=== PATIENT | female | born 1955 | race Caucasian/White ===

== ENCOUNTER 2017-01-21 05:12 | Inpatient (IN) | payer BC ==
[2016-12-23 08:09] VITALS: BMI 41.0
--- NOTE | 2016-12-23 08:41 | PAT Medication Instructions ---
Service Date December 23, 2016. Current Home Medication List Aspirin (Aspirin Tab-Chewable *), QPM Atorvastatin (Lipitor), 20 MG PO QPM Cholecalciferol (Vitamin D3), 1 TAB PO QPM Fish Oil (Robeline-3), 1 CAP PO QPM Furosemide (Lasix), 20 MG PO QAM Melatonin (Melatonin), 1 TAB PO QPM Medication Instructions For Your Scheduled Surgery - Hold the following medications 2 weeks prior to surgery: Fish Oil (Robeline-3), 1 CAP PO QPM - Hold the following medications the morning of surgery: Furosemide (Lasix), 20 MG PO QAM - Take the following medications as scheduled the night before surgery: Melatonin (Melatonin), 1 TAB PO QPM Aspirin 81mg (Aspirin Tab-Chewable *), QPM (okay to continue per surgeon) Atorvastatin (Lipitor), 20 MG PO QPM Cholecalciferol (Vitamin D3), 1 TAB PO QPM If you have any questions please call us at [phone] (Brisa Gonzalez PA-C) or [phone] or [phone]
--- NOTE | 2016-12-23 09:27 | DIAGNOSTIC IMAGING REPORT ---
CHEST PREADMISSION(PA/LAT) HISTORY: Preop. COMPARISON: Chest 11/07/2005. FINDINGS: Mild diffuse interstitial thickening which is slightly progressed. No new focal lung consolidations. No evidence for pulmonary edema. No pleural effusions. No pneumothorax. The heart is normal in size. IMPRESSION: Mild diffuse interstitial thickening which is likely chronic. This has slightly progressed. Electronically signed by: Mati Barajas M.D. 12/23/2016 9:26 AM Dictated Date/Time: 12/23/2016 9:25 AM
--- NOTE | 2017-01-16 21:17 | HISTORY & PHYSICAL EXAMINATION ---
DATE OF ADMISSION: 01/21/2017 CHIEF COMPLAINT: Bilateral knee pain, right side greater than left. HISTORY OF PRESENT ILLNESS: The patient is a 61-year-old white female who is referred to me by my partner Dr. Robertson for surgical treatment of her knees. She has got a long history of bilateral knee pain and discomfort, right side greater than left. She has been through extensive conservative treatment over the past 10 years. She had her left knee reconstructed years ago. She developed increased pain and discomfort in both knees. The right side is more painful than the left. She would like to have both knees fixed but would like to start with the right one. She describes global pain. It is increased with weightbearing. Her walking tolerance is limited to a couple of minutes. PAST MEDICAL HISTORY: 1. Elevated cholesterol. 2. History of TIA without residual. 3. Obesity with a BMI of 41. 4. Half pack a day of cigarette smoking for 30 years. PAST SURGICAL HISTORY: Previous surgeries include: 1. Left ACL repair. 2. Right knee arthroscopy. ALLERGIES: None. No known drug allergies. CURRENT MEDICINES: 1. Lipitor once a day. 2. Baby aspirin once a day. 3. Fish oil. 4. Vitamin D. SOCIAL HISTORY: This is a 61-year-old female. She smokes half pack of cigarettes a day. She is not very active due to her knee pain. FAMILY HISTORY: Significant for heart disease, diabetes, lung cancer, colon cancer. REVIEW OF SYSTEMS: Negative for diabetes. Denies any chest pain or shortness of breath. No history of DVT or PE. No bleeding problems. PHYSICAL EXAMINATION: GENERAL: This is a pleasant, middle-aged female. She looks to be in reasonably good health. HEENT: Benign. NECK: Supple. No lymphadenopathy. LUNGS: Clear to auscultation. HEART: Regular rate and rhythm. ABDOMEN: Soft, nontender, nondistended. EXTREMITIES: Grossly neurovascularly intact except as follows: Examination of the right knee reveals patient walks with a slight bit of varus alignment to her knee. Small varus thrust. Tender over the medial joint line. Range of motion is 5-125. No instability. Examination of the left knee reveals slight varus alignment. Small knee effusion. Range of motion 0-125. No instability. X-RAYS: X-rays of both knees were reviewed. It shows advanced bilateral knee DJD. The right side is bit worse than the left. She has got complete loss of the medial joint space. She has got subchondral sclerosis in the medial compartment of both knees. There is evidence of ACL reconstruction on the left side. ASSESSMENT: A 61-year-old white female with a long history of bilateral knee pain and discomfort, unresponsive to conservative treatment. She has had her right knee scoped in the past and left ACL fixed. She continues to have persistent pain. Right side is worse than left. She has failed conservative treatment and would like to have her right knee replaced. She would like to have her left one done shortly thereafter. PLAN: We will take her to the operating room and do a right total knee replacement. The risks and benefits of this procedure were explained to the patient including but not limited to DVT, PE, , infection, neurological injury, vascular injury, bleeding problem, pain, limited range of motion, stiffness, failure to relieve symptoms, incomplete relief of symptoms, need for further surgery in the future, fracture, leg length inequality, nerve palsy, persistent pain, etc. The patient understands and desires to proceed. Informed consent was obtained. We will have to likely use a nicotine patch due to her smoking history in the hospital. As far as discharge plans, she is planning to be discharged to home using [facility] home health program.
[~2017-01-21] VITALS: Ht 157.5 cm; Wt 102.5 kg
[2017-01-21] VITALS (12 sets, daily range): BP systolic 128–157; BP diastolic 77–87; PULSE 68–99; TEMP 36.5–36.9; O2SAT 84–100; Ht 157.5 cm; Wt 102.5 kg
[~2017-01-21 05:12] MED LIST: ASPCH81; ATOR-22 PO; CHOL1000 PO; FURO-85 PO; MELA3TAB PO; OMEG10007 PO
[2017-01-21] MEDS ORDERED: METOCLOPRAMIDE HCL 10 MG TAB PO SCH (06:00)
[2017-01-21] MEDS ORDERED: BUPIVACAINE LIPOSOME 266 MG, BUPIVACAINE/EPINEPHRINE INJ 50 ML, SODIUM CHLORIDE 0.9% PF... INFIL SCH ×3 (06:00)
[2017-01-21] MEDS ORDERED: FAMOTIDINE 20 MG TAB PO SCH (06:00)
[2017-01-21] MEDS ORDERED: CEFAZOLIN 2000 MG/60 ML D5W 60 ML IV SCH (06:00)
[2017-01-21] MEDS ORDERED: GABAPENTIN 300 MG CAP PO SCH (06:00)
[2017-01-21] MEDS ORDERED: SCOPOLAMINE 1.5 MG TDSY TD SCH (06:00)
[2017-01-21] MEDS ORDERED: LACTATED RINGER'S 1000ML 500 ML IV ONE (06:00)
[2017-01-21] MEDS ORDERED: LACTATED RINGER'S 1000ML 1,000 ML IV SCH ×2 (06:00→16:00)
[2017-01-21] MEDS ORDERED: TRANEXAMIC ACID INJ 1,000 MG in SODIUM CHLORIDE 0.9% 100ML 100 ML IV SCH ×2 (06:00→12:00)
[2017-01-21] MEDS ORDERED: ACETAMINOPHEN 500 MG TAB PO SCH (06:00)
[2017-01-21] MEDS ORDERED: BACITRACIN 50000 UNIT VIAL ONE (06:27)
[2017-01-21] MEDS ORDERED: BUPIVACAINE LIPOSOME 1/3% 266 MG/20 ML VIAL INFIL ONE (06:27)
[2017-01-21] MEDS ORDERED: BUPIVACAINE/EPINEPHRINE 0.25% 1:200,000 30 ML VIAL ONE (06:27)
[2017-01-21] MEDS ORDERED: SODIUM CHLORIDE 0.9% PF 50 ML VIAL ONE (06:27)
[2017-01-21] MEDS ORDERED: BUPIVACAINE 0.5 % 5 MG/1 ML PF 10ML VIAL ONE (06:31)
[2017-01-21] MEDS ORDERED: BUPIVACAINE 0.25% 30 ML VIAL ONE (06:32)
[2017-01-21] MEDS ORDERED: ROCURONIUM BROMIDE 10 MG/ML 5 ML VIAL ONE (06:34)
[2017-01-21] MEDS ORDERED: DEXAMETHASONE SOD INJ 4 MG/ML VIAL ONE (06:34)
[2017-01-21] MEDS ORDERED: PROPOFOL IV EMULSION 10 MG/ML 20 ML VIAL IV ONE (06:34)
[2017-01-21] MEDS ORDERED: ONDANSETRON INJ 2 MG/ML 2 ML VIAL ONE (06:34)
[2017-01-21] MEDS ORDERED: GLYCOPYRROLATE INJ 0.2 MG/ML VIAL ONE ×2 (06:34→08:01)
[2017-01-21] MEDS ORDERED: LIDOCAINE HCL 2% 2 ML VIAL (20MG/ML) ONE (06:34)
[2017-01-21] MEDS ORDERED: NEOSTIGMINE METHYLSULFATE 5 MG/5 ML SYR ONE (06:34)
[2017-01-21] MEDS ORDERED: MIDAZOLAM HCL 1 MG/ML 2ML VIAL ONE ×2 (06:36→06:38)
[2017-01-21] MEDS ORDERED: FENTANYL CITRATE INJ 50 MCG/1 ML 2 ML VIAL ONE (06:36)
--- NOTE | 2017-01-21 06:45 | History & Physical Bridge Note ---
H&P Re-Evaluation Bridge Note: I have examined the patient, reviewed the History & Physical and in the interval since the performance of the History & Physical I have noted the following changes of clinical significance: No changes noted
[2017-01-21] MEDS ORDERED: VANCOMYCIN HCL 1000MG/20ML VIAL ONE (07:17)
[2017-01-21] MEDS ORDERED: FENTANYL CITRATE INJ 50 MCG/1 ML 2 ML VIAL IV PRN (07:30)
[2017-01-21] MEDS ORDERED: ONDANSETRON INJ 2 MG/ML 2 ML VIAL IV PRN ×2 (07:30→08:45)
[2017-01-21] MEDS ORDERED: ATROPINE SULFATE 0.1 MG/ML 5ML SYR IV PRN (07:30)
[2017-01-21] MEDS ORDERED: EpHEDrine SULFATE INJ 50 MG/ML AMP IV PRN (07:30)
--- NOTE | 2017-01-21 08:34 | [facility] Post Operative Brief Note ---
Immediate Operative Summary Operative Date Jan 21, 2017. Pre-Operative Diagnosis Right Knee Advanced Degenerative Joint Disease Post-Operative Diagnosis Right Knee Advanced Degenerative Joint Disease Procedure(s) Performed Right Total Knee Arthroplasty Surgeon Dr. Guido Biology Instructor Surgeon(s) SULTANA Cochran Estimated Blood Loss 50 ml Findings Right Knee DJD Fluids (cc crystalloids) 1200 cc Specimens A. Right Knee Bone and Tissue Drains None Anesthesia Spinal Complication(s) None Disposition Recovery Room / PACU
[2017-01-21] MEDS ORDERED: ALUMINUM/MAGNESIUM/SIMETH (MAALOX MAX) 30 ML UDC PO PRN (08:45)
[2017-01-21] MEDS ORDERED: METOCLOPRAMIDE HCL INJ 5 MG/ML 2 ML VIAL IV PRN (08:45)
[2017-01-21] MEDS ORDERED: SILVER SULFADIAZINE 1% CR 50 GM JAR EXT PRN (08:45)
[2017-01-21] MEDS ORDERED: MoRPHine SULFATE 2 MG/ML CARP IV PRN (08:45)
[2017-01-21] MEDS ORDERED: MAGNESIUM HYDROXIDE SUSP 30 ML UDC PO PRN (08:45)
[2017-01-21] MEDS ORDERED: ZOLPIDEM TARTRATE 5 MG TAB PO PRN (08:45)
[2017-01-21] MEDS ORDERED: DiphenhydrAMINE HCL 50 MG/ML VIAL IV PRN (08:45)
[2017-01-21] MEDS ORDERED: BISACODYL 10 MG SUPP PR PRN (08:45)
[2017-01-21] MEDS ORDERED: NURSING VERBAL MED ORDER ONE (08:50)
[2017-01-21] MEDS: PANTOprazole SOD 40 MG TAB PO SCH (09:00)
[2017-01-21] MEDS: FUROSEMIDE 20 MG TAB PO SCH (09:00)
[2017-01-21] MEDS: MULTIVITAMIN TAB PO SCH (09:00)
[2017-01-21] MEDS: ASPIRIN 325 MG ECTAB PO SCH ×2 (09:00→21:10)
[2017-01-21] MEDS: DOCUSATE SODIUM 100 MG CAP PO SCH ×2 (09:00→21:12)
--- NOTE | 2017-01-21 09:09 | OPERATIVE REPORT ---
DATE OF OPERATION: 01/21/2017 SURGEON: Dr. Jus Guido. APPLICATIONS DEVELOPMENT CONSULTANT: SULTANA Villagran PREOPERATIVE DIAGNOSIS: Right knee degenerative joint disease. POSTOPERATIVE DIAGNOSIS: Same. PROCEDURE PERFORMED: Right cemented posterior stabilized total knee arthroplasty. COMPLICATIONS: None. ESTIMATED BLOOD LOSS: 50 mL. FLUID REPLACEMENT: 1200 mL crystalloid fluid replacement. TOURNIQUET TIME: 54 minutes at 300 mmHg. ANESTHESIA: Spinal with adductor canal block. DRAINS: None. SPECIMENS: Right knee sent for pathology. OPERATIVE INDICATIONS: The patient is a 61-year-old female who has had a long history of bilateral knee problems. She had a history of an open meniscectomy of the right knee many years ago. She has had persistent pain and discomfort and swelling in her knee for several years. She has been treated by my partner Dr. Robertson. She failed conservative care. X-rays revealed advanced right knee DJD. The patient elected to proceed with operative treatment. 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 We elected to place some antibiotic in the cement as a result. OPERATIVE FINDINGS: Operative findings revealed advanced right knee DJD. She had grade 4 [id number] disease, most extensive in the medial compartment. The lateral compartment was pretty well preserved. She has some moderate degenerative changes in the patellofemoral compartment. OPERATIVE IMPLANTS: Operative implants consisted of: 1. A Biomet Vanguard size 62.5 right posterior stabilized femoral component. 2. Biomet size 63 tibial tray. 3. A 12-mm posterior stabilized polyethylene insert. 4. A 28 x 8 all poly patella. OPERATIVE PROCEDURE: The patient was taken to the operating room, identified and placed on the operating table in the supine position. All contact areas were appropriately padded. IV antibiotics were provided by the anesthesia team. A spinal anesthetic and adductor canal block had been provided in the holding area. Hayes catheter was placed in sterile fashion. Right thigh tourniquet was then placed and the right lower extremity was then prepped and draped in the usual sterile fashion. The right leg was elevated and exsanguinated with Esmarch and tourniquet was placed at 300 mmHg. An anterior approach to the right knee was then performed through a longitudinal incision centered over the patella. Sharp dissection was carried through the subcutaneous tissue down to the level of the extensor mechanism. A medial parapatellar arthrotomy incision was made. Some subperiosteal dissection was carried out medially. The fat pad was resected from beneath the patellar tendon. Lateral patellofemoral ligament was released. The patella was everted and knee was flexed. The osteophytes were taken off the distal femur. The ACL and PCL were then released from the distal femur. The tibia was subluxated anteriorly. The external tibial alignment jig was then placed in the anterior face of the tibia and adjusted 16 mm medially. Proximal tibial cut was made to remove about a millimeter or 2 of bone from the most deficient aspect of the medial tibial plateau. The tibia was sized to a size 63. Some osteophytes were taken off medial and posteromedially. Of note, the patient did seem to have some MCL laxity medially, likely due to her previous open exposure surgery. Attention was then drawn to the femur. The distal femur was entered with a sharp drill. The intramedullary canal was suctioned. A right 5-degree valgus cutting guide was placed. Distal femoral cutting block was pinned in place. Distal femoral cut was made to take an additional 3 mm of bone off the distal femur. The femur was then sized to a size 62.5. The AP cutting block was pinned parallel to the epicondylar axis, which was 2 degrees of external rotation. The anterior cut, anterior chamfer cut, posterior cut, and posterior chamfer cuts were made. Box cutting guide was placed and adjusted slightly lateral and the box cut was made. The knee was flexed. The remnants of the medial and lateral menisci were excised. The osteophytes were taken off the posterior aspect of the femur. A trial femoral component was placed. The tibial tray was pinned in maximum external rotation and the drill and stem punch were used to create defect in the proximal tibia for the tibial tray. The knee was then trialed and the 12-mm insert fit most appropriately. Still a little bit of slight MCL laxity, but I elected to accept this as I did not think we could tighten her knee up and extension any further. Attention was then drawn to the patella. The patella was cleaned of all soft tissues. Patella thickness measured 22 mm in thickness and it was cut down to 12. It was sized to a size 28 patella. Lug holes were drilled for the 28 patella. The lateral osteophyte was removed. Patella button was placed. Knee was taken through range of motion and patella tracked nicely with no thumbs test. Attention was then drawn toward placement of permanent components. All trial components were removed. A bone plug was placed in the distal femur to limit blood loss. A double batch of Palacos G cement was mixed. A right size 62.5 posterior stabilized femoral component, size 63 tibial tray, a 12-mm posterior stabilized polyethylene insert, and a 28 x 8 all poly patella were then cemented in place. Knee was brought out into full extension until cement hardened. A final cement check was then performed. Pericapsular tissues were injected with a total of 100 mL of a combination of 20 mL of Exparel, 30 mL of normal saline, and 50 mL of 0.25% Marcaine with epinephrine. The patient did receive 1 gram of tranexamic acid. The tourniquet was then let down for a final tourniquet time of a 54 minutes. Hemostasis was assured with use of electrocautery. The extensor mechanism was then closed with a combination of #1 PDS suture and #1 Vicryl suture in a [id number] fashion. Extensor mechanism was checked and found to be intact. The subcutaneous tissues were then closed with 2-0 Dexon suture in a buried interrupted fashion. Skin was closed skin ludy. Leg was then cleaned and dried and a sterile dressing of Xeroform, 4 x 4, sterile cast padding and Diego bandage were applied. The patient then transferred to the recovery room in stable condition. The patient tolerated the procedure well with no complications. All needle and sponge counts were correct at the end of the operation. I attest to the content of the Intraoperative Record and any orders documented therein. Any exception s are noted below.
--- NOTE | 2017-01-21 09:09 | Anesthesiology Progress Note ---
Anesthesia Post Op Note Date & Time Jan 21, 2017 at 09:08 Vital Signs Pain Intensity: 0 Vital Signs Past 12 Hours Date Time Temp Pulse Resp B/P (MAP) Pulse Ox O2 Delivery O2 Flow Rate FiO2 01/21/17 08:58 99 18 100 Mask 13.0 01/21/17 08:56 163/83 01/21/17 08:54 99 16 01/21/17 08:54 98 16 99 01/21/17 08:52 132/90 01/21/17 08:49 99 15 01/21/17 08:49 100 15 98 01/21/17 08:47 129/86 01/21/17 08:44 105 19 01/21/17 08:44 105 19 97 01/21/17 08:41 151/72 01/21/17 08:39 114 25 93 01/21/17 08:39 115 25 01/21/17 08:36 123/76 01/21/17 08:35 111/60 01/21/17 08:34 110 17 01/21/17 08:34 110 17 91 01/21/17 08:34 36.9 108 16 111/60 93 Mask 13 01/21/17 05:38 36.6 95 20 155/84 93 Room Air Notes Mental Status: alert / awake / arousable, participated in evaluation Pt Amnestic to Procedure: Yes Nausea / Vomiting: adequately controlled Pain: adequately controlled Airway Patency, RR, SpO2: stable & adequate BP & HR: stable & adequate Hydration State: stable & adequate Neuraxial Anesthesia: was administered, sensory block is resolving Anesthetic Complications: no major complications apparent
--- NOTE | 2017-01-21 09:21 | DIAGNOSTIC IMAGING REPORT ---
RIGHT KNEE 1 OR 2 VIEWS ROUTINE CLINICAL HISTORY: AP/LATERAL IN PACU RIGHT KNEE Right COMPARISON: None. DISCUSSION: Anatomic alignment status post total right knee replacement expected soft tissue postoperative change IMPRESSION: Anatomic alignment status post total right knee replacement Electronically signed by: Luis Fernando Medel M.D. 01/21/2017 9:20 AM Dictated Date/Time: 01/21/2017 9:19 AM
[2017-01-21] MEDS ORDERED: ALBUT/IPRATROP 3MG/0.5MG NEB 3 ML VIAL INH STA (09:28)
[2017-01-21] MEDS: D5W AND 1/2NSS + 20MEQ KCL 1,000 ML IV SCH ×2 (10:31→17:57)
[2017-01-21] MEDS: KETOROLAC TROMETHAMINE 30 MG/ML VIAL IV. SCH ×3 (12:24→23:51)
[2017-01-21] MEDS: FERROUS GLUCONATE 324 MG TAB PO SCH ×2 (12:27→17:55)
[2017-01-21] MEDS: OXYCODONE HCL IR 5 MG TAB (IMMEDIATE RELEASE) PO PRN (12:27)
[2017-01-21] MEDS: CEFAZOLIN IV 2,000 MG in DEXTROSE 5% 50ML 50 ML IV SCH ×2 (13:24→21:42)
[2017-01-21] MEDS: ACETAMINOPHEN 500 MG TAB PO SCH ×2 (13:26→21:11)
[2017-01-21] MEDS: CHECK SCOPOLAMINE PATCH PLACEMENT SCH ×2 (16:15→23:52)
[2017-01-21] MEDS ORDERED: SENNA 8.6 MG TAB PO SCH (21:00)
[2017-01-21] MEDS ORDERED: ATORVASTATIN 20 MG TAB PO SCH (21:00)
[2017-01-21] MEDS ORDERED: NON-FORMULARY MEDICATION (Melatonin 1 TAB) PO SCH (21:00)
[2017-01-21] MEDS ORDERED: CHOLECALCIFEROL 400 INTER.UNIT TAB PO SCH (21:00)
[2017-01-21] MEDS: TAPENTADOL ER 50 MG TABCR PO SCH (21:16)
[2017-01-22] MEDS: D5W AND 1/2NSS + 20MEQ KCL 1,000 ML IV SCH (01:52)
[2017-01-22 04:00] VITALS: BP 144/77; PULSE 81; TEMP 36.7; O2SAT 97
[2017-01-22 06:17] LABS: HEMATOCRIT 38.6 % (37-47); MEAN CELL VOLUME 92.6 fL (80-100); MEAN CORPUSCULAR HGB CONC 32.4 g/dl (32-36); MEAN PLATELET VOLUME 10.9 fL (7.4-10.4); PLATELET COUNT 266 K/uL (130-400); RED BLOOD COUNT 4.17 M/uL (4.2-5.4); WHITE BLOOD COUNT 10.45 K/uL (4.8-10.8)
[2017-01-22] MEDS: ACETAMINOPHEN 500 MG TAB PO SCH ×2 (06:20→13:27)
[2017-01-22] MEDS: KETOROLAC TROMETHAMINE 30 MG/ML VIAL IV. SCH ×2 (06:20→12:22)
[2017-01-22 06:55] LABS: BUN/CREATININE RATIO 12.4 (10-20); CALCIUM 8.4 mg/dl (8.5-10.1); CREATININE 0.69 mg/dl (0.60-1.20); POTASSIUM 4.4 mmol/L (3.5-5.1)
[2017-01-22] MEDS: CHECK SCOPOLAMINE PATCH PLACEMENT SCH (07:36)
[2017-01-22 07:56] VITALS: BP 144/72; PULSE 78; TEMP 36.6; O2SAT 93
[2017-01-22 08:17] VITALS: O2SAT 93
[2017-01-22] MEDS: DOCUSATE SODIUM 100 MG CAP PO SCH (08:47)
[2017-01-22] MEDS: FERROUS GLUCONATE 324 MG TAB PO SCH ×2 (08:47→12:22)
[2017-01-22] MEDS: MULTIVITAMIN TAB PO SCH (08:48)
[2017-01-22] MEDS: ASPIRIN 325 MG ECTAB PO SCH (08:48)
[2017-01-22] MEDS: PANTOprazole SOD 40 MG TAB PO SCH (08:48)
[2017-01-22] MEDS: FUROSEMIDE 20 MG TAB PO SCH (08:49)
[2017-01-22] MEDS: TAPENTADOL ER 50 MG TABCR PO SCH (08:51)
[2017-01-22] MEDS ORDERED: NICOTINE 14 MG/24 HR TDSY TD SCH (09:00)
[2017-01-22] MEDS ORDERED: MORP-157 PO (09:53)
[2017-01-22] MEDS ORDERED: OXYC-57 PO (09:53)
[2017-01-22] MEDS ORDERED: ASPEC325 PO (09:53)
--- NOTE | 2017-01-22 09:54 | Discharge Instructions ---
Discharge Instructions Date of Service Jan 22, 2017. Admission Reason for Admission: Djd Knee Right Discharge Discharge Diagnosis / Problem: Right Knee Replacement Discharge Goals Goal(s): Decrease discomfort, Improve function, Increase independence, Improve disease control, Therapeutic intervention Activity Recommendations Activity Limitations: per Instructions/Follow-up section Weightbearing Status: Right weightbearing . Instructions / Follow-Up Instructions / Follow-Up ACTIVITY RECOMMENDATIONS: Physical Therapy: * You will go to physical therapy three times each week for four to six weeks after your surgery in order to regain your knee range of motion and to retrain your knee to work properly. * It is just as important to make sure you are getting your knee perfectly straight as it is to regain your knee bend. * Taking a pain pill an hour before therapy can help you have a more productive and comfortable therapy session. Home Exercise: * You were shown a series of exercises (heel props, heel slides, etc.) in the hospital. Do these exercises three to four times each day including the exercises you were shown in physical therapy. Walking: * Get up and walk several times each day. For the first four weeks, try not to stand or walk for more than one hour at a time. If you do stand or walk for more than one hour, you will not hurt anything, but your knee and leg will likely swell. * As you feel comfortable, you may change from the walker or crutches to a cane and then to independent walking. MEDICATIONS: New Medicine: * You will likely be taking one or more of these medications: 1. MS Contin - A long-acting pain medication. Take 1 tablet twice a day for the first ten days to decrease your baseline level of pain. 2. Percocet - A quick and shorter-acting pain medication. Take one to two tablets every four to six hours to lessen your pain. 3. Aspirin - Thins your blood to lessen the chance of forming a blood clot. * The most common side effects of pain medicine and iron are nausea and constipation. If nausea or constipation is too much of a problem or if you have any questions about your new medicines or doses, call [facility] at . We will try to help you manage these issues. VERY IMPORTANT TO READ AND REVIEW" Pain: * The immediate post-operative period after knee replacement surgery is often quite painful. * You are given a prescription for pain medicine. You should take it, as directed, when you need it, especially before physical therapy and before going to bed. Pain that interferes with sleep is very common and can last several months. * You will likely need pain medicine for the first four to six weeks. It will not stop all of the pain. The pain will lessen and as you feel better, you may change to milder pain medicine such as Tylenol. * The most common side effects of pain medicine are nausea and constipation, so don't take more than you need. SPECIAL CARE INSTRUCTIONS: TEDs/Elastic Stockings: * The white elastic stockings help limit swelling and prevent blood clots from forming in your legs. The more you wear them, the more they work. * Wear them for six weeks after knee replacement surgery and four weeks after partial knee replacement. Prevention of Infection: * Take antibiotics one hour before any dental cleaning, dental work, urological procedure, gastrointestinal procedure or any invasive surgery in order to prevent your new joint from getting infected. * You may get the antibiotics from the doctor performing the procedure or you may call our office at before and we will call in a prescription to the pharmacy of your choice. Things to Watch For: * Drainage from the incision site that occurs more than one week after your surgery. * Severely increased knee/leg pain or swelling. * Increased redness at the incision site. * Fever above 102 degrees Fahrenheit. * Unusual chest pain or shortness of breath. * Unusual pain or burning with urination. Call [facility] at with any of the above problems or if you have any questions about your medicines or recovery. FOLLOW UP VISIT: Make an appointment to see your doctor for approximately two weeks after surgery for a progress check and staple removal by calling the office at . Current Hospital Diet Patient's current hospital diet: Regular Diet Discharge Diet Recommended Diet: Regular Diet Procedures Procedures Performed: Right Total Knee Arthroplasty Pending Studies Studies pending at discharge: no Medical Emergencies . Who to Call and When: Medical Emergencies: If at any time you feel your situation is an emergency, please call 1 immediately. . Non-Emergent Contact Non-Emergency issues call your: Surgeon . "Provider Documentation" section prepared by Jus Guido. . VTE Core Measure Inpt VTE Proph given/why not?: Other Anticoagulation, T.E.D. Stockings, SCD's
--- NOTE | 2017-01-22 11:33 | PROGRESS NOTE ---
DATE: 01/22/2017 SUBJECTIVE: This 61-year-old white female postop day 1 from a right knee replacement. She is doing well. Pain is much better today. No chest pain or shortness of breath. She is anxious and would like to go home. OBJECTIVE: VITAL SIGNS: Temperature 36.6. Vital signs stable. GENERAL: Shows a pleasant, middle-aged female. She is sitting up in bed and looks pretty comfortable. LUNGS: Clear to auscultation. HEART: Regular rate and rhythm. ABDOMEN: Soft, nontender, nondistended. EXTREMITIES: Grossly neurovascularly intact except as follows: Examination of the right leg reveals the dressing to be clean, dry and intact. She can dorsiflex and plantarflex her foot appropriately. She is neurologically intact. She can do a straight leg raise. LABORATORY DATA: Hemoglobin 12.5, hematocrit 38.6. Electrolytes are stable. ASSESSMENT: A 61-year-old white female postop day 1 from a right knee replacement, doing well. Pain is controlled. She is neurologically intact. PLAN: 1. DVT prophylaxis including thigh-high TEDs, SCDs, and aspirin twice a day. 2. PT/OT. Weightbear as tolerated. Right total knee protocol. 3. Pain control, doing well with current pain regimen. 4. Disposition: She is planning to be discharged to home and do home health followed by outpatient therapy.
[2017-01-22 12:50] VITALS: BP 144/72; PULSE 78; TEMP 36.6; O2SAT 93
[2017-01-22] MEDS: OXYCODONE HCL IR 5 MG TAB (IMMEDIATE RELEASE) PO PRN (13:27)
--- NOTE | 2017-01-28 15:17 | Discharge Summary ---
Orthopedic Discharge Summary Admission Date/Reason Jan 21, 2017 at 08:38 Djd Knee Right. Discharge Date/Disposition Jan 22, 2017 Home with services Diagnosis Principal Diagnosis: right knee DJD Secondary Diagnoses/Problems: 1. Elevated cholesterol. 2. History of TIA without residual. 3. Obesity with a BMI of 41. 4. Half pack a day of cigarette smoking for 30 years. Procedure(s) Performed right TKA Consultations none Medication Reconciliation New Medications: Morphine Cont Rel (Ms Contin) 15 Mg Tab 15 MG PO Q12 for 10 Days, #20 TAB Take for 10 days to lessen pain. Oxycodone/Acetaminophen 5MG/325MG (Percocet 5MG/325MG) Tab 1-2 TABLETS PO Q6H PRN for Pain for 30 Days, #60 TAB TAke as needed for Pain. Aspirin (Aspirin) 325 Mg Ectab 325 MG PO BID for 45 Days, #90 Take to prevent blood clots. Continued Medications: Atorvastatin (Lipitor) 20 Mg Tab 20 MG PO QPM, TAB Cholecalciferol (Vitamin D3) 1,000 Unit Tab 1 TAB PO QPM for 90 Days, TAB 3 Refills Fish Oil (Catlin-3) 1 Ea Cap 1 CAP PO QPM, 0 Refills 2400MG DOSE LISTED ON PT MED SHEET Furosemide (Lasix) 20 Mg Tab 20 MG PO QAM, TAB Melatonin (Melatonin) 3 Mg Tab 1 TAB PO QPM Discontinued Medications: Aspirin (Aspirin Tab-Chewable *) 81 Mg Chew QPM, 0 Refills Admission Physical Exam As per Admitting History & Physical. Hospital Course Ysabel was admitted on 6/, underwent TKA, tolerated the procedure well. There were no complications. She was transferred to the pacu post op and later to the orthopedic floor for further care. She was given ancef for antibiotic prophylaxis. Teds, scd's, and aspirin for dvt prophylaxis. hemoglobin, hematocrit, and vital signs were monitored during her hospital stay and remained stable. She did not require any blood transfusions. No complications during her hospital stay. By POD#1 she was tolerating a general diet, pain controlled with oral pain medicines, participating in PT, and had no s/s of dvt. On POD#1 She was discharged on with home health. She was given printed discharge instructions, including the above prescriptions. Continue PT, WBAT. milagros stockings. follow up in 10-12 days or sooner if there are problems or concerns. Discharge Instructions Please refer to the electronic Patient Visit Report (Discharge Instructions) for additional information.
[2017-07-02] MEDS ORDERED: OMEG10007 PO (13:02)
[2017-07-02] MEDS ORDERED: ASPCH81X PO (13:03)
[2017-07-03] MEDS ORDERED: OFLO0.3D4 OT (12:24)
== END 2017-01-22 13:36 | disposition home or self-care (01) | DRG 470 ==
LOC: C.ACU 05:12 → C.3E 08:38 → ENRESERV 08:59
PROVIDERS: ADMIT Orthopaedic Surgery Sports Medicine; ATTEND Orthopaedic Surgery Sports Medicine
PROC: 0SRC0J9 Replacement of Right Knee Joint with Synthetic Substitute, Cemented, Open Approach (ICD-10-PCS; principal; 2017-01-21 07:00)
DX: M17.11 Unilateral primary osteoarthritis, right knee (principal); Z68.41 Body mass index [BMI] 40.0-44.9, adult; E78.00 Pure hypercholesterolemia, unspecified; Z86.73 Personal history of transient ischemic attack (TIA), and cerebral infarction without residual deficits; E66.9 Obesity, unspecified; F17.210 Nicotine dependence, cigarettes, uncomplicated; Z82.49 Family history of ischemic heart disease and other diseases of the circulatory system; Z83.3 Family history of diabetes mellitus; Z80.1 Family history of malignant neoplasm of trachea, bronchus and lung; Z80.0 Family history of malignant neoplasm of digestive organs

== ENCOUNTER → 2017-09-24 | Day surgery (SDC) | payer OTHER ==
[2017-09-08 11:36] VITALS: BMI 40.0
[~2017-09-24] VITALS: Ht 157.5 cm; Wt 100.0 kg
[~2017-09-24] MED LIST changes: -ASPCH81; +ASPCH81X PO; +CEPH500C2 PO; +LIDOCAINE HCL 2% 2 ML VIAL (20MG/ML) ONE; +ONDANSETRON INJ 2 MG/ML 2 ML VIAL ONE; +PROPOFOL IV EMULSION 10 MG/ML 20 ML VIAL IV ONE
[2017-09-24 13:53] VITALS: Ht 157.5 cm; Wt 100.0 kg
--- NOTE | 2017-09-24 14:37 | Endo History and Physical ---
History & Physical Date of Service: Sep 24, 2017. Chief Complaint: FAMILY HISTORY COLON CA MOTHER Referring Physician: DR. LI History of Present Illness Fam hx colon cancer Past Surgical History Hx Cardiac Surgery: No Hx Internal Defibrillator: No Hx Pacemaker: No Hx Abdominal Surgery: Yes (JUAN BSO) Hx of Implantable Prosthesis: No Hx Post-Op Nausea and Vomiting: Yes Hx Cancer Surgery: No Hx Thoracic Surgery: No Hx Orthopedic: Yes (MULTIPLE KNEE SURGERIES BILATERAL, RT TKA ) Hx Urinary Tract Surgery: No Family History Colon CA Social History Smoking Status: Current Every Day Smoker Hx Substance Use: No Hx Alcohol Use: Yes (OCCASIONAL) Allergies Coded Allergies: No Known Allergies (Verified , 09/24/17) Current Medications Reported Home Medications Medications Dose Route/Sig Max Daily Dose Days Date Category Aspirin Chewable (Aspirin) 81 Mg Chew 81 Mg PO HS 07/02/17 Reported Coolidge-3 (Fish Oil) 1 Ea Cap 2 Cap PO QPM 07/02/17 Reported Vitamin D3 (Cholecalciferol) 1,000 Unit Tab 1 Tab PO QPM 12/23/16 Reported Melatonin 3 Mg Tab 1 Tab PO QPM 12/23/16 Reported Lipitor (Atorvastatin Calcium) 20 Mg Tab 20 Mg PO QPM 12/23/16 Reported Lasix (Furosemide) 20 Mg Tab 20 Mg PO QAM 12/23/16 Reported Vital Signs Weight (Kilograms): 100.00 Height (Feet): 5 Height (Inches): 2 Date Time Temp Pulse Resp B/P (MAP) Pulse Ox O2 Delivery O2 Flow Rate FiO2 09/24/17 14:12 36.8 101 20 175/88 (117) 95 Room Air Physical Exam General Appearance: + obese Respiratory/Chest: Respiratory effort: no dyspnea Cardiovascular: Heart Auscultation: RRR Abdomen: Inspection & Palpation: soft Assessment and Plan Fam hx colon cancer for colonoscopy
--- NOTE | 2017-09-24 15:02 | Discharge Instructions ---
Endoscopy Patient Instructions Date / Procedure(s) Performed Sep 24, 2017. Colonoscopy Allergy Information Coded Allergies: No Known Allergies (Verified , 09/24/17) Discharge Date / Findings Sep 24, 2017. polyps Medication Instructions Stopped Medication(s): ASA Restart Stopped Medication(s): resume meds Reported Home Medications Medications Dose Route/Sig Max Daily Dose Days Date Category Aspirin Chewable (Aspirin) 81 Mg Chew 81 Mg PO HS 07/02/17 Reported Reynolds-3 (Fish Oil) 1 Ea Cap 2 Cap PO QPM 07/02/17 Reported Vitamin D3 (Cholecalciferol) 1,000 Unit Tab 1 Tab PO QPM 12/23/16 Reported Melatonin 3 Mg Tab 1 Tab PO QPM 12/23/16 Reported Lipitor (Atorvastatin Calcium) 20 Mg Tab 20 Mg PO QPM 12/23/16 Reported Lasix (Furosemide) 20 Mg Tab 20 Mg PO QAM 12/23/16 Reported Provider Instructions Activity Restrictions - No exercising or heavy lifting for 24 hours. - Do not drink alcohol the day of the procedure. - Do not drive a car or operate machinery until the day after the procedure. - Do not make any important decisions or sign important papers in 24 hours after the procedure. Following Day: - Return to full activity which may include returning to work/school. Diet Start your diet with liquids and light foods (jello, soup, juice, toast). Then eat your usual diet if not nauseated. Treatment For Common After Affects For mild abdominal pain, bloating, or excessive gas: - Rest - Eat lightly - Lie on right side Follow-Up Information Follow-up with DR. LI as scheduled Anesthesia Information What You Should Know You have had a procedure that required some medicine to reduce anxiety and discomfort. This treatment is called moderate sedation. After receiving the treatment, you may be sleepy, but you will be able to breathe on your own. The effects of the treatment may last for several hours. Follow these instructions along with Activity/Diet recommendations noted above: * Do NOT do anything where dizziness or clumsiness would be dangerous. * Rest quietly at home today, then you can be up and about tomorrow. * Have a responsible person stay with you the rest of today. * You may have had an I.V. today. If so, you may take the dressing off later today. Recommendations Call your doctor if: * Trouble breathing * Continuous vomiting for more than 24 hours * Temperature above 101 degrees * Severe abdominal pain or bloating * Pain not relieved by pain medicine ordered * There is increased drainage or redness from any incision * A large amount of rectal bleeding greater than 2-3 tablespoons. (If you had a polyp/s removed or have hemorrhoids, a small amount of blood - from the rectum is to be expected.) * You have any unanswered questions or concerns. IN THE EVENT OF A SERIOUS EMERGENCY, GO TO THE NEAREST EMERGENCY ROOM Your discharge instructions were prepared by provider Gerard Arellano. Patient Instructions Signature Page Ysabel Perez Patient (or Guardian) Signature/Date: I have read and understand the instructions given to me by my caregivers. Caregiver/RN/Doctor Signature/Date: The above-named patient and/or guardian has received patient instructions on this date. + Original Patient Signature Page (only) stays with chart. Please make copy for patient.
--- NOTE | 2017-09-24 15:06 | GI REPORT ---
Procedure Date: 09/24/2017 2:25 PM Procedure: Colonoscopy Indications: Family history of colon cancer in a first-degree relative Medicines: Propofol total dose 230 mg IV, Lidocaine 40 mg IV, Ondansetron 4 mg IV Complications: No immediate complications. Estimated Blood Loss: Estimated blood loss was minimal. Procedure: Pre-Anesthesia Assessment: - Prior to the procedure, a History and Physical was performed, and patient medications, allergies and sensitivities were reviewed. The patient's tolerance of previous anesthesia was reviewed. - The risks and benefits of the procedure and the sedation options and risks were discussed with the patient. All questions were answered and informed consent was obtained. After I obtained informed consent, the scope was passed under direct vision. Throughout the procedure, the patient's blood pressure, pulse, and oxygen saturations were monitored continuously. The scope was introduced through the anus and advanced to the cecum, identified by appendiceal orifice and ileocecal valve. The colonoscopy was performed without difficulty. The patient tolerated the procedure well. The quality of the bowel preparation was excellent. Findings: A 5 mm polyp was found in the transverse colon. The polyp was sessile. The polyp was removed with a cold snare. Resection and retrieval were complete. Estimated blood loss was minimal. A 3 mm polyp was found in the recto-sigmoid colon. The polyp was sessile. The polyp was removed with a cold biopsy forceps. Resection and retrieval were complete. Estimated blood loss was minimal. Impression: - One 5 mm polyp in the transverse colon, removed with a cold snare. Resected and retrieved. - One 3 mm polyp at the recto-sigmoid colon, removed with a cold biopsy forceps. Resected and retrieved. Recommendation: - Discharge patient to home (ambulatory). - Continue present medications. - Await pathology results. - Return to primary care physician PRN. Gerard Arellano M.D. Gerard Arellano MD 09/24/2017 3:06:07 PM This report has been signed electronically. Note Initiated On: 09/24/2017 2:25 PM I attest to the content of the Intraoperative Record and orders documented therein, exceptions below
[2017-09-24 15:32] VITALS: BP 156/78; PULSE 89; O2SAT 95
--- NOTE | 2017-09-24 16:12 | Anesthesia Progress Nt - [facility] ---
Anesthesia Post Op Note Date & Time Sep 24, 2017 at 16:12 Vital Signs Pain Intensity: 0 Vital Signs Past 12 Hours Date Time Temp Pulse Resp B/P (MAP) Pulse Ox O2 Delivery O2 Flow Rate FiO2 09/24/17 15:32 89 20 156/78 (104) 95 Room Air 09/24/17 15:21 85 20 157/59 (91) 95 Room Air 09/24/17 15:10 88 16 123/71 (88) 97 Room Air 09/24/17 14:12 36.8 101 20 175/88 (117) 95 Room Air Notes Mental Status: alert / awake / arousable, participated in evaluation Pt Amnestic to Procedure: Yes Nausea / Vomiting: adequately controlled Pain: adequately controlled Airway Patency, RR, SpO2: stable & adequate BP & HR: stable & adequate Hydration State: stable & adequate Anesthetic Complications: no major complications apparent
== END | disposition home or self-care (01) ==
LOC: C.GI 13:32
PROVIDERS: ATTEND Internal Medicine Gastroenterology
DX: Z12.11 Encounter for screening for malignant neoplasm of colon (principal); Z80.0 Family history of malignant neoplasm of digestive organs; D12.5 Benign neoplasm of sigmoid colon; D12.3 Benign neoplasm of transverse colon; F17.200 Nicotine dependence, unspecified, uncomplicated; G47.33 Obstructive sleep apnea (adult) (pediatric); F32.9 Major depressive disorder, single episode, unspecified; E66.01 Morbid (severe) obesity due to excess calories; M19.90 Unspecified osteoarthritis, unspecified site; Z90.710 Acquired absence of both cervix and uterus; Z96.651 Presence of right artificial knee joint; Z79.82 Long term (current) use of aspirin; Z90.89 Acquired absence of other organs; Z99.89 Dependence on other enabling machines and devices; Z86.73 Personal history of transient ischemic attack (TIA), and cerebral infarction without residual deficits; Z92.241 Personal history of systemic steroid therapy

== ENCOUNTER 2021-11-13 09:44 | Observation (INO) ==
--- NOTE | 2021-11-09 09:14 | Anesthesiology Consultation ---
Date of Service November 09, 2021 Assessment & Plan (1) Encounter for pre-operative examination: abnormal CT lung 08/08/2021 demonstrating R hilar lymphadenopathy considered to be pathologic per report without available records on further evaluation. Awaiting most recent PCP office note and any available pulmonology records. - COVID screening: Per landscape artist on 11/08/2021: Travel screen negative, no known COVID-19 positive contacts or current COVID-19 related symptoms in past 2 weeks. Patient vaccinated. Surgeon arranging preop COVID testing, scheduled 11/09/2021. Awaiting results. Chart Review Chart Review: Pending: Refer to Additional Notes / Consult section and Patient NOT seen in Pre Admission Testing History Surgery Operation Date: 11/13/21 07:00 Proposed Procedures p Revision Right Tibial Component Possible Complete Revision Total Knee Arthroplasty - Jus Guido MD Surgery re-scheduled from 07/2021. Height/Weight Height: 5 ft 2 in Weight: 104.326 kg Allergies Allergy/AdvReac Type Severity Reaction Status Date / Time No Known Drug Allergies Allergy Verified 11/08/21 15:29 Medications Home Medications Medication Instructions Recorded Confirmed Last Taken aspirin 81 mg tablet,delayed 81 mg PO HS 09/29/18 11/08/21 10/03/21 release atorvastatin 20 mg tablet (Lipitor) 20 mg PO HS 09/29/18 11/08/21 10/03/21 cholecalciferol (vitamin D3) 50 2,000 unit PO QPM 09/29/18 11/08/21 10/03/21 mcg (2,000 unit) tablet (Vitamin D3) furosemide 20 mg tablet 20 mg PO QAM 09/29/18 11/08/21 10/03/21 montelukast 10 mg tablet 10 mg PO QAM 04/26/21 11/08/21 10/03/21 (Singulair) Wheeled Walker #1 ea 06/05/21 10/29/21 10/03/21 Wheeled Walker #1 ea 06/15/21 10/29/21 10/03/21 amino acids (Amino Acid) 6 cap PO QAM 11/08/21 11/08/21 Unknown azelastine 137 mcg (0.1 %) nasal 2 spray INTRANASAL QAM 11/08/21 11/08/21 Unknown spray aerosol omega 4-wzm-[id number]-fish oil 1,000 mg 1 cap PO QPM 11/08/21 11/08/21 Unknown (120 mg-180 mg) capsule (Fish Oil) Past Medical History Medical History (Updated 11/09/21 @ 09:11 by Lara Veneags PA-C) Emphysema of lung Eustachian tube dysfunction Fluid retention in legs Daily diuretic, follows with PCP Hilar lymphadenopathy R with dominant lymph node 1.7 x 1.5 cm considered pathologic per report Hyperlipidemia Mixed conductive and sensorineural hearing loss of left ear with restricted hearing of right ear Morbid obesity Painful total knee replacement, right Seasonal allergies Sleep apnea CPAP (compliant) Transient ischemic attack (TIA) over 5 yrs ago, no residual effects, follows with PCP Past Family History Family History Mother Family hx of colon cancer Family history of diabetes mellitus Heart disease Hypertension Family history of reaction to anesthesia PONV Father Heart disease Lung cancer non-smoker Hypertension Family history of reaction to anesthesia PONV Other Family history of colonic polyps No family history of bleeding disorder Stroke Past Surgical History Surgical History History of adenoidectomy History of arthroscopy R/L knee History of colonoscopy History of myringotomy x2 BMT (05/03/2021): LMA #4 at [facility] [place] (weight at time 104.4kg) History of tonsillectomy History of tooth extraction History of total abdominal hysterectomy and bilateral salpingo-oophorectomy Nausea and vomiting after administration of anesthetic agent hx of > last 2 procedures, no issues Status post right knee replacement HX History of PONV History of PONV Social History Smoking Status: Current every day smoker tobacco type: cigarettes Smoking cigarettes per day: 10 CIGS A DAY Do You Dip or Chew Tobacco: No Hx Alcohol Use: Yes Alcohol type: beer, wine and hard liquor alcohol intake frequency: other Alcohol Intake Frequency Comment: 1 X Q 3 MONTHS Hx Substance Use: No substance use type: does not use Lab Results Anesthesia Preop Results Results Anesthesia Widget: WBC 10.19 K/uL (4.8-10.8) 11/06/21 Hgb 15.7 g/dL (12.0-16.0) 11/06/21 Hct 47.0 % (37-47) 11/06/21 Plt 306 K/uL (130-400) 11/06/21 Na 142 mmol/L (136-145) 11/06/21 K 4.0 mmol/L (3.5-5.1) 11/06/21 Cl 104 mmol/L (98-107) 11/06/21 CO2 29 mmol/L (21-32) 11/06/21 BUN 14 mg/dl (6-23) 11/06/21 Creat 0.69 mg/dl (0.6-1.2) 11/06/21 Glucose Level 150 mg/dl (70-99(Fasting)) H 11/06/21 PT 11.2 Seconds (9.0-12.0) 11/06/21 INR 1.1 (0.9-1.1) 11/06/21 Blood Type A Positive 11/06/21 Antibody Screen NEGATIVE 11/06/21 Testing Electrocardiogram Date: 11/14/20 NSR, rate 85 bpm Right superior axis deviation Nonspecific T wave abnormality 04/26/2021 report not fully visible Chest X-Ray Date: 06/27/21 Frontal and lateral radiographs of the chest demonstrate the cardiomediastinal silhouette to be within normal limits. There is evidence for central bronchial thickening. The lungs are clear of alveolar opacities. There is no evidence for effusion bilaterally. There is no evidence for vascular congestion. There is no acute osseous pathology. IMPRESSION: No acute cardiopulmonary disease. Central endobronchial thickening which can be seen with the clinical diagnosis of chronic bronchitis. No smoking history was provided. Other Testing CT Lung 08/08/2021 IMPRESSION: 1. Scattered subcentimeter pulmonary nodules as described above with the largest in the right lower lobe measuring 7 mm. Please refer to the recommendations below for follow-up. 2. Ilhi-eg-qbuvzqeb emphysema. 3. Mild diffuse interstitial thickening. This favors chronic interstitial changes. 4. Right hilar lymphadenopathy with the dominant lymph node measuring 1.7 x 1.5 cm. This is considered to be pathologic. Follow-up pulmonary consultation with possible bronchoscopy/tissue diagnosis recommended for further evaluation.
--- NOTE | 2021-11-09 15:10 | History and Physical Report ---
DATE OF SERVICE: 11/13/2021. CHIEF COMPLAINT: Persistent right knee pain, discomfort after knee replacement surgery 5 years ago. HISTORY OF PRESENT ILLNESS: The patient is a 66-year-old female who is now just about 5 years out fr om a right knee replacement. Knee replacement was uncomplicated. She did well for the first 3 years without any problems. She had several falls in a short period of time after that and started having increasing pain. I have been following her for the past year or so for loosening of her tibial tray . We have been trying to talk her into having this revised, but she has deferred for various reasons . Pain has gradually gotten worse. We did an extensive infection workup, which has all been negativ e including a Synovasure test and 3 sets of cultures. She would now like to have her knee revised. She describes mostly pemberton pain. No fevers. No problems with wound healing afterwards. She was canc eled at one point for the COVID epidemic. PAST MEDICAL HISTORY: Significant for: 1. Elevated cholesterol. 2. Sleep apnea with CPAP machine. 3. History of transient ischemic attack without sequelae. 4. Moderate obesity. 5. TMJ. PAST SURGICAL HISTORY: Includes: 1. Right knee replacement done on 01/21/2017. 2. Hysterectomy. ALLERGIES: None. CURRENT MEDICATIONS: Include: 1. Atorvastatin. 2. Lasix. 3. Aspirin. 4. Vitamins. 5. Fish oil. 6. Singulair. SOCIAL HISTORY: A 65-year-old female. She smokes half pack of cigarettes a day. Does not drink. FAMILY HISTORY: Noncontributory. REVIEW OF SYSTEMS: Negative for diabetes. Denies any fevers or weight loss. No history of DVT or P E. No known bleeding problems. PHYSICAL EXAMINATION: GENERAL: Pleasant middle-aged female. She is in no acute distress. HEENT: Benign. NECK: Supple. No lymphadenopathy. LUNGS: Clear to auscultation. HEART: Regular rate and rhythm. ABDOMEN: Soft, nontender, nondistended. EXTREMITIES: Grossly neurovascularly intact except as follows. Examination of the right knee reveals the patient walks with a slight bit of a limp. She has got gaviota us alignment to her knee with a varus thrust with weightbearing. She has a very small knee effusion. Range of motion is 0 to about 115. Good straight leg raise. She does have some varus valgus laxit y, fairly mild. X-RAYS: We have a series of sequential x-rays over a period of time show progressive loosening of th e tibial tray. It is tipped into varus. It has progressed since her last visit. Femoral component l ooks to be well fixed. The patella is well centered within the trochlea. ASSESSMENT: A 65-year-old female, now 5 years out from a right knee replacement with loosening of th e tibial tray. She has had an extensive infectious workup including a Synovasure test, which was neg ative. She has had very mildly elevated sed rate and C-reactive proteins, but 3 negative cultures. She would like to proceed with revision at this time. We will try to talk her into doing this much e arlier, but she has resorted to do this now. PLAN: We are going to take her to the operating room and do a revision knee replacement. If we get in there and there is infection, we will obviously place a spacer. I think that is unlikely. We are going to revise the tibial tray and hopefully that is all we need to do. If we need to revise the f emur, we will do it. Risks and benefits of right total knee revision were explained to the patient i nclude but not limited to DVT, PE, , infection, neurological injury, vascular injury, bleeding p roblem, pain and incomplete relief of symptoms, etc. The patient understands and desires to proceed. Informed consent was obtained. Of note, the patient did have a CT scan which revealed some nodules in her lungs. She is going to ge t this further evaluated, but I do not think we can wait on her lung evaluation to proceed with a kne e surgery. This tibial tray is tilting and I am afraid if it is causing a fracture in this area. Job ID: [id number]
[~2021-11-13 09:44] MED LIST changes: +ACETAMINOPHEN 500 MG TAB PO SCH; -ASPCH81X PO; -ATOR-22 PO; +BUPIVACAINE 0.25% 30 ML VIAL ONE; +BUPIVACAINE 0.5 % 5 MG/1 ML PF 10ML VIAL ONE; +BUPIVACAINE LIPOSOME/PF 266 MG, BUPIVACAINE/EPINEPHRINE 50 ML, SODIUM CHLORIDE 0.9% 30 ... INFIL SCH; -CEPH500C2 PO; -CHOL1000 PO; +CeleBREX 200 MG CAP PO SCH; +FAMOTIDINE 20 MG TAB PO SCH; -FURO-85 PO; -LIDOCAINE HCL 2% 2 ML VIAL (20MG/ML) ONE; +LR 500ML BOLUS, THEN 15ML/HR IV SCH; -MELA3TAB PO; -OMEG10007 PO; -ONDANSETRON INJ 2 MG/ML 2 ML VIAL ONE; -PROPOFOL IV EMULSION 10 MG/ML 20 ML VIAL IV ONE; +Scopolamine 1 MG TDSY TD SCH; +TRANEXAMIC ACID 1,000 MG **IV Intra-op IV SCH; +ceFAZolin 2000MG 2,000 MG/15 ML SYR IV SCH
[2021-11-13] MEDS ORDERED: MIDAZOLAM HCL 1 MG/ML 2ML VIAL ONE ×2 (12:06→14:28)
[2021-11-13] MEDS ORDERED: fentaNYL citrate 100 MCG/2 ML VIAL IV PRN (12:11)
[2021-11-13] MEDS ORDERED: ATROPINE SULFATE 0.1 MG/ML 10ML SYR IV PRN (12:11)
[2021-11-13] MEDS ORDERED: ONDANSETRON INJ 2 MG/ML 2 ML VIAL IV PRN ×2 (12:11→16:32)
[2021-11-13] MEDS ORDERED: ePHEDrine sulfate 50 MG/ML AMP IV PRN (12:11)
[2021-11-13] MEDS ORDERED: SODIUM CHLORIDE 0.9% PF 50 ML VIAL ONE (12:32)
[2021-11-13] MEDS ORDERED: BUPIVACAINE 0.25% 30 ML VIAL ONE (12:32)
[2021-11-13] MEDS ORDERED: BUPIVACAINE LIPOSOME 1.3% 266 MG/20 ML VIAL ONE (12:32)
[2021-11-13] MEDS ORDERED: EPINEPHrine INJ 1 MG/ML AMP ONE (12:32)
[2021-11-13] MEDS ORDERED: VANCOMYCIN HCL 1000MG/20ML VIAL ONE (13:04)
[2021-11-13] MEDS ORDERED: KETAMINE 50 MG/5 ML SYRINGE ONE (13:10)
[2021-11-13] MEDS ORDERED: PROPOFOL IV EMULSION 10 MG/ML 20 ML VIAL IV ONE ×2 (13:41→14:36)
[2021-11-13] MEDS ORDERED: GLYCOPYRROLATE 0.2 MG/ML VIAL ONE (13:46)
--- NOTE | 2021-11-13 15:22 | Post Operative Brief Note ---
PG Immediate Post Op with CF Date of Surgery November 13, 2021 Pre & Post Diagnosis Operation Date: 11/13/21 11:45 Pre-Op Diagnosis: Painful Loosened Right Total Knee Arthrplasty-aseptic loosening of the tibial tray Post-Op Diagnosis: Painful Loosened Right Total Knee Arthrplasty-aseptic loosening of the tibial tray I identified the patient and participated in the time-out.: Yes Procedure Operation Date: 11/13/21 11:45 Actual Procedures p Revision Right Tibial Component Possible Complete Revision Total Knee Arthroplasty(Right) - Jus Guido MD Surgeon Jus Guido MD Coper Hand Niraj Sutton PA-C Estimated Blood Loss 100 Findings Consistent with Post-Op Diagnosis Specimens Specimen Description: Culture #1--Right Knee Joint Fluid--for STAT gram stain, routine culture and sensitivity, aerobes and anaerobes--sent to lab at 1323 Frozen Section #1--Right Knee Synovium, #of WBCs per high power field--sent to lab at 1335 Drains Hayes Catheter Complications none Disposition Accompanied Patient To Recovery: No
--- NOTE | 2021-11-13 16:01 | XRay Report ---
XR knee RT 1 or 2V routine HISTORY: 66 years-old Female Surgical Post Op right knee total joint arthroplasty COMPARISON: Knee radiographs 11/08/2021 TECHNIQUE: 3 views of the right knee FINDINGS: Total joint arthroplasty with patellar resurfacing. Anterior midline skin ludy are noted along wit h expected postoperative soft tissue swelling and deep tissue air. No acute fracture, alignment or un expected opaque foreign body. IMPRESSION: Right knee total joint arthroplasty with expected postoperative changes. ACT 112: Negative or not required by law. The above report was generated using voice recognition software. It may contain grammatical, syntax o r spelling errors. Electronically signed by: Jose Reardon M.D. 11/13/2021 3:59 PM
[2021-11-13] MEDS: Scopolamine CHECK PATCH PLACEMENT SCH (16:19)
[2021-11-13] MEDS ORDERED: METOCLOPRAMIDE HCL INJ 5 MG/ML 2 ML VIAL IV PRN (16:32)
[2021-11-13] MEDS ORDERED: ALUMINUM/MAGNESIUM SUSP 30 ML UDC PO PRN (16:32)
[2021-11-13] MEDS ORDERED: bisacodyL 10 MG SUPP PR PRN (16:32)
[2021-11-13] MEDS ORDERED: HYDROmorphone INJ 0.5 MG/0.5 ML SYR IV PRN (16:32)
[2021-11-13] MEDS ORDERED: NALOXONE HCL 0.4 MG/1 ML VIAL/CARP IV PRN (16:32)
[2021-11-13] MEDS ORDERED: oxyCODONE HCL IR 5 MG TAB (IMMEDIATE RELEASE) PO PRN (16:32)
[2021-11-13] MEDS ORDERED: MAGNESIUM HYDROXIDE SUSP 30 ML UDC PO PRN (16:32)
--- NOTE | 2021-11-13 16:43 | Anesthesiology Progress Note ---
Date of Service November 13, 2021 Anesthesia Post Procedure Vital Signs Vital Signs: Temp Pulse Pulse Resp BP Pulse Ox 11/13/21 16:20 36.5 C 82 18 135/79 95 11/13/21 16:00 78 22 133/80 94 11/13/21 15:50 36.4 C L 81 21 139/84 95 11/13/21 15:40 77 15 140/84 97 11/13/21 15:30 85 18 149/73 H 100 11/13/21 15:20 36.1 C L 91 H 14 140/66 98 11/13/21 10:07 37.1 C 93 H 20 166/84 H 97 Pain Intensity Right Knee: Pain Intensity: 3 Transfer of Care Handoff Completed per policy Notes Mental Status: alert / awake / arousable Patient Amnestic to Procedure: Yes Nausea / Vomiting: adequately controlled Pain: adequately controlled Airway Patency, RR, SpO2: stable & adequate BP & HR: stable & adequate Hydration State: stable & adequate Neuraxial Anesthesia: was administered and sensory block is resolving Anesthetic Complications: no major complications apparent and Pt Satisfied with anesthetic care
[2021-11-13] MEDS: SODIUM CHLORIDE 0.9% 1000ML 1,000 ML IV SCH (17:09)
--- NOTE | 2021-11-13 17:23 | Operative Report ---
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 Fluid sent for stat Gram stain aerobic anaerobic culture with results pending Anesthesia Type Spinal MAC Complications none Disposition Accompanied Patient To Recovery: No Indications Patient is a 66-year-old female who is now about 5 years out from uneventful total knee replacement. She did well for the first 3 years. At that point she had several falls and started developed increased pain discomfort in her knee since then. She was seen and diagnosed with loosening the tibial tray about a year and a half ago. We tried to talk her into having surgery sooner but she just did not want to do it and did not feel was that bad. She had several infectious work-ups at 3 and all all of them negative including cultures each time negative aspirate and is negative Synovasure test. Femoral component appears well fixed. She elected proceed with revision of her tibial tray. Description of Procedure Operative implants consisted of: 1 Biomet Vanguard size 67 tibial tray with a 80 mm x 13 mm extension with a 2.5 mm offset and small cruciate wing. In addition, we placed 5 mm medial and lateral augments. 2. 14 mm posterior stabilized polyethylene insert. The patient was taken the operating, identified, and placed on the operating table supine position protectors were properly padded. IV antibiotics tried by anesthesia team. A spinal anesthetic and been implemented holding area. Hayes catheter was placed in sterile fashion. Right thigh turn was then placed in the right lower extremities and prepped draped in usual sterile fashion. The right leg was elevated exsanguinated with use of an Esmarch in terms playset 300 mmHg. An anterior approach to the right knee was then performed to the previous incision. Sharp dissection was carried through subcutaneous tissue down the extensor mechanism. A medial parapatellar arthrotomy incision was made. Some subperiosteal dissection was carried medially. I did extensive synovectomy of the suprapatellar pouch medial lateral gutters. The synovium was essentially benign. There was a serous fluid which looked benign also well with just a slight blood-tinged to it. We did send off fluid for stat Gram stain aerobic anaerobic culture. The synovium was sent off for frozen section which revealed 0 polys per high-power field. We elected proceed with revision. The patella subluxated laterally. The knee was flexed. The polyethylene was removed. The tibial tray was removed without difficulty using the stacked osteotome technique. The was grossly loose and came out with a lot of the cement. I then removed the cement from the proximal tibia. We then went to preparing the tibia. The tibia was entered with the IM reamer. I then reamed up to a size 13. I then cut the proximal tibia with a cut 1 mm below the more prominent lateral side. We then sized the tibia to a size 67. I did increase the size try to maximize coverage to avoid subsidence as the previous knee had done. I then prepared the tibia for a 67 tray with a 2.5 mm offset. The tray was assembled and fit quite nicely. We did elect to place 5 mm augments. I then examined the femur and it was rocksolid. No signs of loosening. Patella looked well also and tracked nicely. We elect to place these implants. All trial implants were removed. I curetted the tibia of all of foreign debris. A double batch Palacos G cement was mixed with additional gram of vancomycin. The tibial tray was then placed and cemented through the metaphysis and the surface component. A trial insert was placed. The knee was brought out in full extension until the cement hardened. A final cement check was then performed. We elect to place a 14 mm insert and the permanent insert was placed. The tourniquet was let down for turn time of 93 minutes. Hemostasis assured use electrocautery. We did inject locally with 100 cc of combination of 50 cc of quarter percent Marcaine with epinephrine 20 cc of Exparel, and 30 cc of normal saline. Patient did receive 1 g tranexamic acid. We then irrigated the wound extensively. The extensor neck was then closed with combination 1 PDS suture #1 Vicryl suture in [id number] fashion. Extensor mechanism checked found to be intact and subcutaneous tissues then closed 2 Dexon suture in a buried interrupted fashion skin was closed and skin ludy. Legs then cleaned and dried a sterile dressing with Xeroform, 4 x 4's, sterile cast padding, Diego bandage applied. Patient then transferred to the recovery room in stable condition. Patient tolerated procedure well and there were no complications. Niraj Sutton, my physician hotel assistant manager, was present for the entire procedure. His assistance was essential and required for appropriate patient positioning, prepping and draping, surgical exposure, performing the technical details of the operation, placement the implants, closure of the wound, and placement of the sterile bandage. I attest to the content of the Intraoperative Record and any orders documented therein. Any exceptions are noted below.
[2021-11-13] MEDS: KETOROLAC 30 MG/ML VIAL IV SCH ×2 (18:10→21:11)
[2021-11-13] MEDS: ASCORBIC ACID 500 MG TAB PO SCH (18:28)
--- NOTE | 2021-11-13 20:50 | Progress Notes ---
DATE OF SERVICE: 11/13/2021. SUBJECTIVE: A 66-year-old white female postop from a right total knee replacement, tibial revision. This was done for aseptic loosening. She is doing well. Some pain, but very manageable. No chest pain or shortness of breath. Not feeling dizzy or lightheaded. OBJECTIVE: VITAL SIGNS: Temperature is 36.9. Vital signs are stable. PHYSICAL EXAMINATION: GENERAL: Shows a pleasant middle-aged female. She is sitting up in bed, eating her dinner, looks co mfortable. LUNGS: Clear to auscultation. HEART: Has a regular rate and rhythm. ABDOMEN: Soft, nontender, nondistended. EXTREMITIES: Grossly neurovascularly intact except as follows: Examination of the right knee and le g reveals the dressing to be clean, dry and intact. Leg is well aligned. She can dorsiflex and plan tarflex her foot appropriately. She is neurologically intact. X-RAYS: X-rays of the right knee from recovery room were reviewed. It shows a right cemented total knee replacement with a tibial stem. Alignment looks good. No signs of problems. ASSESSMENT: A 66-year-old female postoperative from a right knee tibial revision for aseptic looseni ng. She is doing well. Pain controlled. She is neurologically intact. PLAN: 1. DVT prophylaxis includes thigh-high TEDs, SCDs, and aspirin twice a day. 2. PT, OT, weightbear as tolerated. Right total knee protocol. 3. Pain control, doing well with current pain regimen. 4. IV antibiotics x24 hours. 5. Disposition: Plan to discharge her home with some home health once adequately recovered and reha bed. We will see how she does in therapy tomorrow. Job ID: [id number]
[2021-11-13] MEDS ORDERED: OMEGA-3 (PURIFIED FISH OIL) 1 GM CAP PO SCH (21:00)
[2021-11-13] MEDS ORDERED: SENNA 8.6 MG TAB PO SCH (21:00)
[2021-11-13] MEDS ORDERED: CHOLECALCIFEROL 1,000 UNITS 25 MCG TAB PO SCH (21:00)
[2021-11-13] MEDS ORDERED: ATORVASTATIN 20 MG TAB PO SCH (21:00)
[2021-11-13] MEDS: ASPIRIN 81 MG ECTAB PO SCH (21:01)
[2021-11-13] MEDS: DOCUSATE SODIUM 100 MG CAP PO SCH (21:01)
[2021-11-13] MEDS: ceFAZolin 2000MG 2,000 MG/15 ML SYR IV SCH (21:04)
[2021-11-13] MEDS: ACETAMINOPHEN 500 MG TAB PO SCH (21:05)
[2021-11-13] MEDS: TAPENTADOL HCL ER 50 MG TABCR PO SCH (21:05)
[2021-11-13] MEDS ORDERED: TRANEXAMIC ACID / 0.7% NACL 1,000 MG/100 ML BAG IV SCH (21:30)
[2021-11-14] MEDS: Scopolamine CHECK PATCH PLACEMENT SCH ×2 (00:55→08:03)
[2021-11-14] MEDS: SODIUM CHLORIDE 0.9% 1000ML 1,000 ML IV SCH (03:32)
[2021-11-14] MEDS: KETOROLAC 30 MG/ML VIAL IV SCH ×2 (05:02→10:35)
[2021-11-14] MEDS: ceFAZolin 2000MG 2,000 MG/15 ML SYR IV SCH (05:03)
[2021-11-14] MEDS: ACETAMINOPHEN 500 MG TAB PO SCH (05:03)
[2021-11-14 06:21] LABS: Hematocrit (blood only) 40.6 % (37-47); Hemoglobin 13.2 g/dL (12.0-16.0); Mean Corpuscular Hemoglobin 30.6 pg (25-34); Mean Corpuscular Hgb Conc 32.5 g/dL (32-36); Mean Platelet Volume 11.3 fL (7.4-10.4); Platelet Count 266 K/uL (130-400); RDW Standard Deviation 44.7 fL (36.4-46.3); Red Blood Count 4.32 M/uL (4.2-5.4); White Blood Count 12.72 K/uL (4.8-10.8)
[2021-11-14 07:06] LABS: Calcium 8.6 mg/dl (8.5-10.1); Creatinine Clr Calc Pharmacy 76.7 ml/min; Est GFR (African American) 87.7 ml/min; Est GFR (Non-African American) 75.7 ml/min; Potassium 3.9 mmol/L (3.5-5.1)
[2021-11-14] MEDS: ASPIRIN 81 MG ECTAB PO SCH (07:59)
[2021-11-14] MEDS: DOCUSATE SODIUM 100 MG CAP PO SCH (08:00)
[2021-11-14] MEDS ORDERED: dexAMETHasone 10 MG in SYRINGE 0 ML IV SCH (08:00)
[2021-11-14] MEDS: ASCORBIC ACID 500 MG TAB PO SCH (08:02)
[2021-11-14] MEDS: TAPENTADOL HCL ER 50 MG TABCR PO SCH (08:04)
[2021-11-14] MEDS ORDERED: MULTIVITAMIN TAB PO SCH (09:00)
[2021-11-14] MEDS ORDERED: FUROSEMIDE 20 MG TAB PO SCH (09:00)
[2021-11-14] MEDS ORDERED: NON-FORMULARY MEDICATION (Amino Acids [Amino Acid] Capsule) PO SCH (09:00)
[2021-11-14] MEDS ORDERED: MONTELUKAST SODIUM 10 MG TABLET PO SCH (09:00)
[2021-11-14] MEDS ORDERED: AZELASTINE HCL 0.1% NASAL 200 SPRAYS/27,400 MCG BTL NAE SCH (09:00)
[2021-11-14] MEDS ORDERED: DOCUSATE SODIUM/SENNA 50/8.6MG TAB PO SCH (09:00)
--- NOTE | 2021-11-20 06:43 | Discharge Summary ---
Date of Service November 20, 2021 Discharge Data Procedures Performed Operation Date: 11/13/21 11:45 Actual Procedures p Right Tibial Knee Revision (Right) - Jus Guido MD Hospital Course (1) Status post revision of total replacement of right knee: This patient is a 66 year old patient admitted on 11/13/21 and underwent revision of her tibial component of a total knee replacement. She tolerated the procedure well and there were no complications. Transferred to the PACU post op and later to the orthopedic floor for further care. She was given ancef for antibiotic prophylaxis. She was also given JAZMYNE stockings, SCDs, and aspirin for DVT prophylaxis. Hemoglobin, hematocrit, and vital signs were monitored during her hospital stay and remained stable. Did not require any blood transfusions. There were no complications during her hospital stay. By post op day #1 the patient was tolerating a regular diet, pain was reasonably controlled with oral pain medicine, and she was participating in physical therapy. On post op day #1 the patient was discharged home and set up with home health care. She was given printed discharge instructions including prescriptions for extra strength tylenol, aspirin, cefadroxil, toradol, zofran, and oxycodone. Continue physical therapy, weight bearing as tolerated. Continue JAZMYNE stockings. Follow up approximately 2 weeks post op or sooner if there are problems or concerns. Coding Level of Care Code None Diagnoses Status post revision of total replacement of right knee Z96.651
== END 2021-11-14 13:01 | disposition home health service (06) ==
LOC: 3E 09:44 → ASU 09:44
DX: Z98.890 Other specified postprocedural states; Y83.1 Surgical operation with implant of artificial internal device as the cause of abnormal reaction of the patient, or of later complication, without mention of misadventure at the time of the procedure; Z79.899 Other long term (current) drug therapy; G47.30 Sleep apnea, unspecified; M65.861 Other synovitis and tenosynovitis, right lower leg; T84.84XA Pain due to internal orthopedic prosthetic devices, implants and grafts, initial encounter; Z79.82 Long term (current) use of aspirin; Z99.89 Dependence on other enabling machines and devices; K08.409 Partial loss of teeth, unspecified cause, unspecified class; Z90.710 Acquired absence of both cervix and uterus; H90.A32 Mixed conductive and sensorineural hearing loss, unilateral, left ear with restricted hearing on the contralateral side; F17.210 Nicotine dependence, cigarettes, uncomplicated; Z68.41 Body mass index [BMI] 40.0-44.9, adult; E66.01 Morbid (severe) obesity due to excess calories; E78.5 Hyperlipidemia, unspecified; Z86.73 Personal history of transient ischemic attack (TIA), and cerebral infarction without residual deficits